=== PATIENT | female | born 1990 | race American Indian/Alaskan Native ===

== ENCOUNTER 2019-12-28 03:29 | Outpatient (CLI) | payer OTHER ==
[2019-12-28] MEDS ORDERED: HYDROcodone/ACETAMINOPHEN 10-325MG TAB PO PRN (04:34)
[2019-12-28 07:44] VITALS: BP 108/67
== END 2019-12-28 09:09 | disposition home or self-care (01) ==
LOC: TRG 03:29 → APU 03:31 → TRG 09:09
PROVIDERS: ATTEND Obstetrics & Gynecology
DX: O47.1 False labor at or after 37 completed weeks of gestation (principal); Z3A.37 37 weeks gestation of pregnancy
CPT/HCPCS: 59025